=== PATIENT | female | born 1935 | race African-American/Black ===

== ENCOUNTER 2017-02-07 10:41 | Inpatient (IN) | payer MEDICARE, MEDICAID ==
[~2017-02-07] VITALS: Ht 160 cm; Wt 58.5 kg
[2017-02-07] MEDS ORDERED: DEXTROSE 50%-WATER 50 ML DISP.SYRIN ONE (10:45)
--- NOTE | 2017-02-07 10:55 | NUR ---
PT VIRGIE FROM [facility] FOR LOW BLOOD SUGAR. PER STAFF PT HAS NOT BEEN EATING THAT WELL. LATELY. NOTED AMS. BLOOD SUGAR 21. MADE AWARE. VSS. SAFETY AND COMFORT MEASURES PROVIDED. IV ACCESS STARTED. D50 IVP GIVEN OER ORDER. KISHORE MONITOR.
[2017-02-07] MEDS ORDERED: DEXTROSE 50%-WATER 50 ML DISP.SYRIN IVP ONE (11:00)
--- NOTE | 2017-02-07 11:08 | NUR ---
BS RECHECKED AT 120. MADE AWARE.
[2017-02-07 11:15] LABS: BASOPHILS % (AUTO) 0.5 % (0.0-2.0); HEMATOCRIT 38 % (33-45); HEMOGLOBIN 10.8 g/dL (11.5-14.8); LYMPHOCYTES # (AUTO) 0.2 /CMM (0.8-4.8); LYMPHOCYTES % (AUTO) 5.6 % (20.0-44.0); MEAN CORPUSCULAR HEMOGLOBIN 23 PG (26.0-33.0); MEAN CORPUSCULAR HGB CONC 29 g/dl (31.0-36.0); MEAN CORPUSCULAR VOLUME 80 fL (82-100); MONOCYTES # (AUTO) 0.1 /CMM (0.1-1.30); MONOCYTES % (AUTO) 2.1 % (2.0-12.0); NEUTROPHILS # (AUTO) 4.2 /CMM (1.8-8.9); NEUTROPHILS % (AUTO) 91.8 % (43.0-81.0); PLATELET COUNT (AUTO) 268 /CMM (150-450); RDW COEFFICIENT OF VARIATION 19.7 (11.5-15.0); RED BLOOD CELL COUNT(AUTO) 4.72 MIL/uL (4.0-5.2); WHITE BLOOD COUNT (AUTO) 4.5 K/uL (4.3-11.0)
[2017-02-07] MEDS ORDERED: LEVO50TA8 PO (11:15)
[2017-02-07] MEDS ORDERED: VERA180T7 PO (11:15)
[2017-02-07] MEDS ORDERED: ESOM20CA PO (11:15)
--- NOTE | 2017-02-07 11:15 | NUR ---
PT NOW AAOX3. APPLE JUICE GIVEN. WILL MONITOR.
[2017-02-07 11:26] LABS: CALCIUM, SERUM 8.9 mg/dL (8.5-10.1); CARBON DIOXIDE 17 mmol/L (21-32); CHLORIDE 103 mmol/L (98-107); GLUCOSE 155 mg/dL (74-106); POTASSIUM 4.7 mmol/L (3.5-5.1); SODIUM SERUM 140 mmol/L (136-145); UREA NITROGEN, BLOOD 23 mg/dL (7-18)
[2017-02-07 11:29] LABS: INR 0.96 (0.87-1.13)
[2017-02-07 11:32] LABS: ALANINE AMINOTRANSFERASE 23 U/L (12-78); ALBUMIN 3.6 g/dL (3.4-5.0); ALKALINE PHOSPHATASE 119 U/L (46-116); ASPARTATE AMINOTRANSFERASE 36 U/L (15-37); BILIRUBIN,DIRECT 0.2 mg/dL (0.0-0.2); BILIRUBIN,TOTAL 0.4 mg/dL (0.2-1.0); TOTAL PROTEIN, SERUM 7.2 g/dL (6.4-8.2)
[2017-02-07 11:33] LABS: TROPONIN I < 0.017 ng/mL (0.00-0.056)
--- NOTE | 2017-02-07 11:36 | NUR ---
CALLED [employer] ALMOND PASTE MIXER WAS PAGED.
--- NOTE | 2017-02-07 11:40 | NUR ---
PT STILL UNABLE TO PROVDIE URINE SAMPLE AT THIS TIME.
--- NOTE | 2017-02-07 12:06 | NUR ---
URINE SAMPLE OBTAINED, SENT.
[2017-02-07 12:10] LABS: APPEARANCE,URINE Clear (CLEAR); BILIRUBIN,URINE Negative (NEGATIVE); BLOOD, URINE Small Ery/uL (NEGATIVE); COLOR,URINE Yellow (YELLOW); KETONES,URINE >=160 (NEGATIVE); LEUKOCYTE ESTERASE ,URINE Negative (NEGATIVE); NITRITE, URINE Negative (NEGATIVE); PROTEIN,URINE Negative (NEGATIVE); UGLUCOSE 100 MG/DL mg/dL (NEGATIVE); UROBILINOGEN,URINE 0.2 EU/dL (0.2)
[2017-02-07 12:21] LABS: BACTERIA,URINE None seen /HPF (None Seen); MUCUS,URINE Rare /LPF (None Seen); SQUAMOUS EPITHELIAL CELL,UR Moderate /HPF (None Seen); WBC,URINE 0-3 /HPF (0-3)
--- NOTE | 2017-02-07 12:27 | NUR ---
REPORT GIVEN TO THIERRY BRADFORD FOR MED SURG 308-1
[2017-02-07] MEDS ORDERED: Z GUARD REMEDY 2 OZ OINT TP PRN (13:00)
[2017-02-07] MEDS ORDERED: MAGNESIUM HYDROXIDE 30 ML UDC PO PRN (13:00)
[2017-02-07] MEDS ORDERED: ONDANSETRON HCL/PF 4 MG/2 ML VIAL IVP PRN (13:00)
[2017-02-07] MEDS ORDERED: ACETAMINOPHEN 325 MG TABLET PO PRN (13:00)
[2017-02-07] MEDS ORDERED: MAG HYDROX/AL HYDROX/SIMETH 30 ML UDC PO PRN (13:00)
--- NOTE | 2017-02-07 13:00 | NUR ---
RN ADMITTING NOTES RECEIVED REPORT FROM SANCHEZ BATRES FROM ER. PATIENT ARRIVED TO UNIT AT 1240PM. VITAL SIGNS ARE STABLE. NO SIGNS AND SYMPTOMS OF DISTRESS. DENIED PAIN. ORDERS RECEIVED FROM MD AND CARRIED OUT. IV SITE IS INTACT AND PATENT. WILL CONTINUE TO ASSESS AND MONITOR PATIENT
[2017-02-07] MEDS ORDERED: IV SET PRIMARY PUMP SET 1 EA INFUS.SET MC ONE (13:25)
[2017-02-07] MEDS: IV D5/0.45 NACL 1,000 ML IV PRN (13:34)
[2017-02-07] MEDS: VERAPAMIL SR 180 MG TABLET.SA PO SCH (14:28)
[2017-02-07 16:00] VITALS: BP 151/85
--- NOTE | 2017-02-07 17:00 | NUR ---
IV FLUID TO BE RESUMED AFTER MIDLINE INSERTION AT A RATE OF 125ML/HR
--- NOTE | 2017-02-07 17:00 | NUR ---
IV SITE IS LEAKING. ATTEMPTED TO OPEN A NEW IV. CHARGE NURSE NOTIFIED. MID LINE ORDERED.
--- NOTE | 2017-02-07 18:25 | NUR ---
RN CLOSING NOTES PATIENT IS IN BED, ALERT AND ORIENTED TO NAME, PLACE AND TIME. NO SIGNS AND SYMPTOMS OF DISTRESS. DENIED PAIN. PENDING CT ABDOMEN/PELVIC. PENDING MIDLINE INSERTION. ALL NEEDS ANTICIPATED. PATIENT KEPT SAFE AND CLEAN. BED IN LOW POSITION, LOCKED AND TWO SIDE RAILS ARE UP. WILL ENDORSE TO NET FINISHER NURSE.
[2017-02-07 18:34] LABS: THYROID STIMULATING HORMONE 0.168 uIU/mL (0.358-3.74)
--- NOTE | 2017-02-07 19:00 | NUR ---
PATIENT WISH TO BE DNR/DNI. ENDORSED TO LENDING CONSULTANT NURSE
--- NOTE | 2017-02-07 19:30 | NUR ---
AM NURSE REPORTED THAT PT WISHES TO BE A DNR/DNI, NO ORDER WAS PLACED IN THE SYSTEM CONFIRMING THIS, WILL NOTIFY MD OF PT'S WISHES TO OBTAIN DNR/DNI ORDER, PER MY CONVERSATION WITH PT, SHE UNDERSTANDS AND IS AWARE THAT SHE WILL BE TREATED A FULL CODE UNTIL ORDER ENTERED BY MD., WILL CONTINUE TO MONITOR CLOSELY.
--- NOTE | 2017-02-07 19:30 | NUR ---
MS RN INITIAL NOTE RECEIVED PT AWAKE AND ALERT, ORIENTED X3, NO COMPLAINT OF PAIN OR RESPIRATORY DISTRESS NOTED DURING PHYSICAL ASSESSMENT, PT IS CLEAN/DRY AND COMFORTABLE, SAFETY MEASURES WILL BE OBSERVED AT ALL TIMES, NEEDS WILL BE ANTICIPATED AND ATTENDED TO PROMPTLY.
[2017-02-07 20:00] VITALS: BP 143/81
[2017-02-07] MEDS ORDERED: HYDROCODONE/APAP 5/325MG 1 EACH TABLET ONE (21:11)
[2017-02-07] MEDS: HYDROCODONE/APAP 5/325MG 1 EACH TABLET PO PRN (21:17)
[2017-02-08] MEDS ORDERED: HYDROCODONE/APAP 5/325MG 1 EACH TABLET ONE (01:41)
[2017-02-08] MEDS: HYDROCODONE/APAP 5/325MG 1 EACH TABLET PO PRN ×3 (01:46→20:35)
[2017-02-08] MEDS: IV D5/0.45 NACL 1,000 ML IV PRN ×2 (04:18→16:29)
--- NOTE | 2017-02-08 06:27 | NUR ---
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
[2017-02-08 06:31] LABS: EOSINOPHILS # (AUTO) 0.1 /CMM (0.0-0.7); EOSINOPHILS % (AUTO) 1.9 % (0.0-6.0); HEMATOCRIT 33 % (33-45); HEMOGLOBIN 10.6 g/dL (11.5-14.8); LYMPHOCYTES # (AUTO) 1.2 /CMM (0.8-4.8); MEAN CORPUSCULAR HEMOGLOBIN 25 PG (26.0-33.0); MEAN CORPUSCULAR HGB CONC 32 g/dl (31.0-36.0); MEAN CORPUSCULAR VOLUME 77 fL (82-100); MONOCYTES # (AUTO) 0.7 /CMM (0.1-1.30); MONOCYTES % (AUTO) 12.6 % (2.0-12.0); NEUTROPHILS # (AUTO) 3.4 /CMM (1.8-8.9); NEUTROPHILS % (AUTO) 62.5 % (43.0-81.0); PLATELET COUNT (AUTO) 254 /CMM (150-450); RDW COEFFICIENT OF VARIATION 20.1 (11.5-15.0); RED BLOOD CELL COUNT(AUTO) 4.31 MIL/uL (4.0-5.2); WHITE BLOOD COUNT (AUTO) 5.4 K/uL (4.3-11.0)
--- NOTE | 2017-02-08 07:10 | NUR ---
RN MS NOTES PATIENT IN BED, ALERT AND ORIENTED, KEPT NPO FOR CT ABDOMEN, PATIENT AWARE, NO DISTRESS, NO SOB NOTED AT THIS TIME, ALL NEEDS ATTENDED, SAFETY MEASURES IN PLACED, CALL LIGHT WITHIN REACH, WILL CONTINUE TO MONITOR.
[2017-02-08 08:00] VITALS: BP 131/68
[2017-02-08 08:13] LABS: ALANINE AMINOTRANSFERASE 31 U/L (12-78); ALBUMIN 3.2 g/dL (3.4-5.0); ALKALINE PHOSPHATASE 113 U/L (46-116); ASPARTATE AMINOTRANSFERASE 46 U/L (15-37); BILIRUBIN,TOTAL 0.9 mg/dL (0.2-1.0); CALCIUM, SERUM 8.9 mg/dL (8.5-10.1); CREATININE 0.8 mg/dL (0.6-1.3); GLUCOSE 109 mg/dL (74-106); MAGNESIUM 1.4 mg/dL (1.8-2.4); PHOSPHORUS 2.3 mg/dL (2.5-4.9); TOTAL PROTEIN, SERUM 6.3 g/dL (6.4-8.2); UREA NITROGEN, BLOOD 16 mg/dL (7-18)
[2017-02-08] MEDS ORDERED: IOHEXOL-300 100 ML VIAL IV ONE (08:27)
[2017-02-08] MEDS ORDERED: CT SWABBABLE VALVE TRANS SET 1 EA INFUS.SET MC ONE (08:27)
[2017-02-08] MEDS ORDERED: IV NS 0.9% 250 ML IV ONE (08:27)
[2017-02-08 08:28] LABS: CARBON DIOXIDE 28 mmol/L (21-32); CHLORIDE 98 mmol/L (98-107); POTASSIUM 3.9 mmol/L (3.5-5.1); SODIUM SERUM 130 mmol/L (136-145)
--- NOTE | 2017-02-08 09:00 | NUR ---
RN MS NOTES CT ABDOMEN COMPLETED, PATIENT SERVED BREAKFAST.
[2017-02-08 09:02] LABS: BAND % (MANUAL) 4 % (0.0-5.0); LYMPHOCYTES % (MANUAL) 11 % (16-48); MONOCYTES % (MANUAL) 7 % (0-11.0); NEUTROPHILS % (MANUAL) 78 (42-76)
[2017-02-08] MEDS: LEVOTHYROXINE SODIUM 50 MCG TABLET PO SCH (09:02)
[2017-02-08] MEDS: PANTOPRAZOLE 40 MG TABLET.DR PO SCH (09:02)
[2017-02-08] MEDS ORDERED: SECONDARY IV SET 1 EA INFUS.SET MC ONE (09:26)
[2017-02-08] MEDS: Magnesium 1GM/D5W 100ML PREMIX 100 ML IV SCH ×2 (09:31→10:36)
[2017-02-08] MEDS: VERAPAMIL SR 180 MG TABLET.SA PO SCH (09:32)
[2017-02-08] MEDS ORDERED: K PHOS NEUTRAL 250 MG TABLET PO ONE (13:30)
--- NOTE | 2017-02-08 15:00 | NUR ---
RN MS NOTES CT ABDOMEN PELVIS RESULT RELAYED TO DR. PERDOMO, NO NEW ORDER AT THIS TIME. PATIENT IN STABLE CONDITION. ALL NEEDS ATTENDED, WILL CONTINUE TO MONITOR.
[2017-02-08 16:00] VITALS: BP 116/68
--- NOTE | 2017-02-08 18:13 | NUR ---
RN MS NOTES PATIENT IN BED, ALERT AND ORIENTED, NO DISTRESS NOTED, NO S/SX OF HYPO/HYPERGLYCEMIA, DAKOTAH MIDLINE PATENT AND INTACT WITH IVF INFUSING AND TOLERATING WELL, DENIES PAIN AT THIS TIME, NO SOB NOTED, MAGNESIUM REPLACED, ASSISTED WITH ADLS, CALL LIGHT WITHIN REACH, SAFETY MEASURES IN PLACED, WILL ENDORSE TO RAIL EQUIPMENT OPERATOR FOR LIZZETTE.
--- NOTE | 2017-02-08 19:30 | NUR ---
MS RN INITIAL NOTE RECEIVED PT AWAKE AND ALERT, ORIENTED X3, NO RESPIRATORY DISTRESS NOTED DURING PHYSICAL ASSESSMENT, PT STATES PAIN MEDICATION EFFECTIVE IN RELIEVING PAIN, PT IS CLEAN/DRY AND COMFORTABLE, SAFETY MEASURES WILL BE MAINTAINED AT ALL TIMES, NEEDS WILL BE ANTICIPATED AND ATTENDED TO PROMPTLY.
[2017-02-08 20:00] VITALS: BP 126/78
[2017-02-09] MEDS: IV D5/0.45 NACL 1,000 ML IV PRN ×3 (01:35→19:46)
--- NOTE | 2017-02-09 06:16 | NUR ---
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
[2017-02-09 06:54] LABS: HEMATOCRIT 32 % (33-45); HEMOGLOBIN 10.1 g/dL (11.5-14.8); MEAN CORPUSCULAR HEMOGLOBIN 24 PG (26.0-33.0); MEAN CORPUSCULAR HGB CONC 32 g/dl (31.0-36.0); MEAN CORPUSCULAR VOLUME 77 fL (82-100); PLATELET COUNT (AUTO) 212 /CMM (150-450); RDW COEFFICIENT OF VARIATION 20.3 (11.5-15.0); RED BLOOD CELL COUNT(AUTO) 4.16 MIL/uL (4.0-5.2); WHITE BLOOD COUNT (AUTO) 4.7 K/uL (4.3-11.0)
[2017-02-09 07:02] LABS: CALCIUM, SERUM 8.7 mg/dL (8.5-10.1); CREATININE 0.7 mg/dL (0.6-1.3); GLUCOSE 118 mg/dL (74-106); PHOSPHORUS 3.2 mg/dL (2.5-4.9); UREA NITROGEN, BLOOD 11 mg/dL (7-18)
[2017-02-09 07:30] LABS: CARBON DIOXIDE 26 mmol/L (21-32); CHLORIDE 105 mmol/L (98-107); POTASSIUM 3.8 mmol/L (3.5-5.1); SODIUM SERUM 139 mmol/L (136-145)
--- NOTE | 2017-02-09 07:37 | NUR ---
MS RN NOTES RECEIVED REPORT WITH PATIENT A/OX4. PATIENT IS RESTING COMFORTABLY IN BED. NO S/S OF DISTRESS OR SOB NOTED. IV IS PATENT AND INTACT. CALL LIGHT IS WITHIN REACH. BED IS IN THE LOWEST, LOCKED POSITION. WILL CONTINUE TO MONITOR THROUGHOUT SHIFT.
[2017-02-09 08:00] VITALS: BP 132/79
[2017-02-09 08:11] LABS: EOSINOPHILS % (MANUAL) 3 % (0-4); LYMPHOCYTES % (MANUAL) 8 % (16-48); MONOCYTES % (MANUAL) 3 % (0-11.0); NEUTROPHILS % (MANUAL) 86 (42-76)
[2017-02-09] MEDS: PANTOPRAZOLE 40 MG TABLET.DR PO SCH (08:27)
[2017-02-09] MEDS: VERAPAMIL SR 180 MG TABLET.SA PO SCH (08:27)
[2017-02-09] MEDS: LEVOTHYROXINE SODIUM 50 MCG TABLET PO SCH (08:27)
[2017-02-09] MEDS: HYDROCODONE/APAP 5/325MG 1 EACH TABLET PO PRN (08:34)
[2017-02-09] MEDS ORDERED: IV SET PRIMARY PUMP SET 1 EA INFUS.SET MC ONE (10:05)
[2017-02-09 16:00] VITALS: BP 128/74
[2017-02-09] MEDS: diphenhydrAMINE HCL ELIX 25 MG/10 ML UDC PO PRN ×2 (16:31→22:18)
--- NOTE | 2017-02-09 18:35 | NUR ---
MS RN NOTES PATIENT IS A/OX4. NO S/S OF DISTRESS OR SOB NOTED. IV IS PATENT AND INTACT WITH PRESCRIBED FLUIDS RUNNING. ALL PATIENT NEEDS HAVE BEEN MET THROUGHOUT SHIFT. CALL LIGHT IS WITHIN REACH. BED IS IN LOWEST, LOCKED POSITION. WILL ENDORSE CARE TO PM SHIFT.
--- NOTE | 2017-02-09 19:30 | NUR ---
MS/ENTRY ANALYST; RECEIVED PT SITTING IN BED AWAKE, ALERT AND ORIENTED X 4. BREATHING NON LABORED AND EVEN.DENIES PAIN. IV SITE DAKOTAH MIDLINE INTACT AND PATENT. IVF INFUSING. PT REMINDED TO CALL FOR HELP. CALL LIGHT WITHIN REACH. BED ON LOWER POSITION AND LOCKED FOR SAFETY. UPPER PART OF BED SIDE RAILS ARE UP FOR SAFETY. WILL CONTINUE TO MONITOR.
[2017-02-09 20:00] VITALS: BP 130/58
--- NOTE | 2017-02-09 22:15 | NUR ---
MS/MARKETING INFORMATION ANALYST; C/O ITCHING TO LOWER BACK AND LEGS. DIAPER REMOVED. LOTION APPLIED TO BACK AND LEGS. BENADRYL 25 MG 10 ML PO Q6 PRN GIVEN. WILL CONTINUE TO MONITOR.
[2017-02-10] MEDS: IV D5/0.45 NACL 1,000 ML IV PRN (05:59)
--- NOTE | 2017-02-10 06:00 | NUR ---
MS/AU PAIR; C/O PAIN LT LOWER LEG WITH PAIN LEVEL OF 7 OUT OF 10. NORCO 5-325 MG 1 TAB. PO Q4 PRN GIVEN.
[2017-02-10] MEDS: HYDROCODONE/APAP 5/325MG 1 EACH TABLET PO PRN (06:02)
--- NOTE | 2017-02-10 06:59 | NUR ---
MS/AGRICULTURAL EXTENSION OFFICER; PT SLEPT AT SHORT INTERVALS. PT ALERT AND ORIENTED. APPEARED PLEASANT LADY. VOIDING. BM X 1. CONTINUE TO MONITOR. CALL LIGHT WITHIN REACH. WILL ENDORSE TO THE DAY SHIFT NURSE.
--- NOTE | 2017-02-10 07:34 | NUR ---
MS/RN OPENING NOTE PT. IS IN BED A&OX4. NO SOB, BREATHING ON ROOM AIR UNLABORED AND EVENLY. NO S/S OF ACUTE DISTRESS. IV FLUIDS RUNNING AT 125 ML/HR ON LEFT UPPER ARM MIDLINE IV ACCESS. BED IS IN LOW POSITION, 2 SIDE RAILS UP, AND INSTRUCTED PT. TO USE CALL LIGHT FOR ASSISTANCE. WILL CONTINUE TO ASSESS AND MONITOR.
[2017-02-10 07:56] VITALS: BP 107/83
[2017-02-10] MEDS ORDERED: LEVO25TA9 PO (09:08)
[2017-02-10] MEDS ORDERED: FERR-58 PO (09:08)
[2017-02-10] MEDS: PANTOPRAZOLE 40 MG TABLET.DR PO SCH (09:20)
[2017-02-10] MEDS: LEVOTHYROXINE SODIUM 50 MCG TABLET PO SCH (09:20)
[2017-02-10 09:27] VITALS: BP 107/83
[2017-02-10] MEDS: VERAPAMIL SR 180 MG TABLET.SA PO SCH (09:27)
[2017-02-10] MEDS ORDERED: HYDROCODONE/APAP 5/325MG 1 EACH TABLET PO ONE (12:00)
--- NOTE | 2017-02-10 14:28 | NUR ---
MS/ANALYTICAL CHEMISTRY TEACHER PT. LEFT TO [facility] BY WHEEL CHAIR IN MEDICALLY STABLE CONDITION. PT. SIGNED DISCHARGE PAPERS, AND BELONGINGS LIST. IV AND ID BAND WAS REMOVED. MEDICATION PRESCRIPTION LIST AND EDUCATIONS WAS PROVIDED, PT. VERBALIZED UNDERSTANDING.
== END 2017-02-10 14:30 | DRG 640 ==
LOC: ER 10:43 → MED 12:26
PROVIDERS: ADMIT Internal Medicine; ATTEND Internal Medicine
PROC: 05H633Z Insertion of Infusion Device into Left Subclavian Vein, Percutaneous Approach (ICD-10-PCS; principal; 2017-02-07)
DX: E16.2 Hypoglycemia, unspecified (principal); G93.41 Metabolic encephalopathy; E87.2 Acidosis; E03.9 Hypothyroidism, unspecified; E83.42 Hypomagnesemia; I10 Essential (primary) hypertension; J45.909 Unspecified asthma, uncomplicated; Z66 Do not resuscitate; Z96.649 Presence of unspecified artificial hip joint; D50.9 Iron deficiency anemia, unspecified; E88.09 Other disorders of plasma-protein metabolism, not elsewhere classified; R63.4 Abnormal weight loss; Z68.22 Body mass index [BMI] 22.0-22.9, adult
CPT/HCPCS: 36415; 71010-TC; 80048-TC; 80053-TC; 80076-TC; 81000-TC; 82962-TC; 83540-TC; 83605-TC; 83735-TC; 84100-TC; 84443-TC; 84484-TC; 85025-TC; 85730-TC; 87040-TC; 87081-TC; 87086-TC; 97001-TC; A4606; J3475; J3490; J7050; Q0163; Q9967; Z7610